=== PATIENT | male | born 1950 | race American Indian/Alaskan Native ===

== ENCOUNTER 2017-04-28 12:52 | Emergency (ER) | payer OTHER ==
--- NOTE | 2017-04-28 14:09 | XRay Report ---
BILATERAL SHOULDERS, 3 VIEWS History: Pain after fall. Findings: Moderate osteoarthritic changes are identified at both shoulders. No evidence for fracture, dislocation or ligamentous injury. The soft tissues are unremarkable. Impression: Degenerative changes.
--- NOTE | 2017-04-28 20:43 | Emergency Department Report ---
ED Upper Extremity Inj HPI - General Chief Complaint: Fall Stated Complaint: BILATERAL SHOULDER PAIN Time Seen by Provider: 04/28/17 20:33 Source: patient Mode of arrival: Ambulatory Limitations: No Limitations - History of Present Illness Initial Comments: pt is a 67 y/o aam with hx of htn, osteoarthritis who presents for complaint of bilat shoulder pain s/p fall down 2 steps last pm , patient describes pain as 5/ 10 aching and soreness exacerbated by movement pain is relieved by rest , there is no numbness no weakness no tingling no back or neck pain there was no loc pt did not seek treatment last night because " pain was not that bad last night. Complaint: Injury to:: left, right, shoulder Onset/Timin -: days(s) Other Extremity Injury: Shoulder: Left, Right Other Injuries: none Handedness: right Place: home Severity scale (0 -10): 5 Improves With: immobilization, rest Worsens With: movement of extremity Context: fall Associated Symptoms: denies: weakness, numbness, neck pain, suspects foreign body, nausea/vomiting, heard/felt popping sensat - Related Data Previous Rx's Medication Instructions Recorded Last Taken Type Acetaminophen [Acetaminophen TAB] 1,000 mg PO Q6HR PRN #60 tablet 04/28/17 Unknown Rx Cyclobenzaprine [Flexeril] 10 mg PO TID PRN #30 tablet 04/28/17 Unknown Rx Diclofenac Sodium [Voltaren] 100 gm TP TID PRN #1 tube 04/28/17 Unknown Rx Allergies Allergy/AdvReac Type Severity Reaction Status Date / Time No Known Allergies Allergy Unverified 04/28/17 13:20 ED Review of Systems ROS: Stated complaint: BILATERAL SHOULDER PAIN Other details as noted in HPI Constitutional: denies: chills, fever Eyes: denies: eye pain, eye discharge, vision change ENT: denies: ear pain, throat pain Respiratory: denies: cough, shortness of breath, wheezing Cardiovascular: denies: chest pain, palpitations Endocrine: no symptoms reported Gastrointestinal: denies: abdominal pain, nausea, diarrhea Genitourinary: denies: urgency, dysuria Musculoskeletal: arthralgia, myalgia Skin: denies: rash, lesions Neurological: denies: headache, weakness, paresthesias Psychiatric: denies: anxiety, depression Hematological/Lymphatic: denies: easy bleeding, easy bruising ED Past Medical Hx - Past Medical History Hx Hypertension: Yes Hx of Cancer: Yes Hx Arthritis: Yes - Surgical History Past Surgical History?: No - Social History Smoking Status: Current Every Day Smoker Substance Use Type: Alcohol - Medications Home Medications: Home Medications Medication Instructions Recorded Confirmed Last Taken Type Acetaminophen [Acetaminophen TAB] 1,000 mg PO Q6HR PRN #60 tablet 04/28/17 Unknown Rx Cyclobenzaprine [Flexeril] 10 mg PO TID PRN #30 tablet 04/28/17 Unknown Rx Diclofenac Sodium [Voltaren] 100 gm TP TID PRN #1 tube 04/28/17 Unknown Rx ED Physical Exam - General Limitations: No Limitations General appearance: alert, in no apparent distress - Head Head exam: Present: atraumatic, normocephalic - Eye Eye exam: Present: normal appearance - ENT ENT exam: Present: mucous membranes moist - Neck Neck exam: Present: normal inspection - Respiratory Respiratory exam: Present: normal lung sounds bilaterally. Absent: respiratory distress - Cardiovascular Cardiovascular Exam: Present: regular rate, normal rhythm. Absent: systolic murmur, diastolic murmur, rubs, gallop - GI/Abdominal GI/Abdominal exam: Present: soft, normal bowel sounds - Rectal Rectal exam: Present: deferred - Extremities Exam Extremities exam: Present: tenderness (bilat ac joint tenderness ), normal capillary refill. 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 Absent: swelling, abrasion, laceration, ecchymosis, deformity, crepidus, dislocation, erythema Upper Arm exam: Present: normal inspection, full ROM. Absent: tenderness Elbow exam: Present: normal inspection, full ROM. Absent: tenderness Forearm Wrist exam: Present: normal inspection, full ROM. Absent: tenderness Hand Wrist exam: Present: normal inspection. Absent: full ROM Neuro motor exam: Present: wrist extension intact, thumb opposition intact, thumb IP flexion intact, thumb adduction intact, fingers 2-5 abduction intact Neurosensory exam: Present: 2-point discrimination, radial nerve intact, ulnar nerve intact, median nerve intact Vascular: Present: normal capillary refill, radial pulse, brachial pulse, ulnar pulse. 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 Absent: swelling, abrasion, laceration, ecchymosis, deformity, crepidus, dislocation, erythema Upper Arm exam: Present: normal inspection, full ROM. Absent: tenderness Elbow exam: Present: normal inspection, full ROM. Absent: tenderness Forearm Wrist exam: Present: normal inspection, full ROM. Absent: tenderness Hand Wrist exam: Present: normal inspection, full ROM. Absent: tenderness Neuro motor exam: Present: wrist extension intact, thumb opposition intact, thumb IP flexion intact, thumb adduction intact, fingers 2-5 abduction intact Neurosensory exam: Present: 2-point discrimination, radial nerve intact, ulnar nerve intact, median nerve intact Vascular: Present: normal capillary refill, radial pulse, brachial pulse, ulnar pulse. Absent: vascular compromise, Pallo, pulse deficit radial art, pulse deficit ulnar art, pulse deficit brachial art - Back Exam Back exam: Present: normal inspection, full ROM. Absent: tenderness, CVA tenderness (R), CVA tenderness (L), muscle spasm, paraspinal tenderness, vertebral tenderness, rash noted - Neurological Exam Neurological exam: Present: alert, oriented X3, CN II-XII intact, normal gait, reflexes normal - Psychiatric Psychiatric exam: Present: normal affect, normal mood - Skin Skin exam: Present: warm, dry, intact, normal color. Absent: rash ED Course Vital Signs 04/28/17 13:09 Temperature 98.2 F Pulse Rate 78 Respiratory 16 Rate Blood Pressure 173/92 O2 Sat by Pulse 98 Oximetry ED Medical Decision Making - Medical Decision Making pt is a 67 y/o aam with hx of htn, osteoarthritis who presents for complaint of bilat shoulder pain s/p fall down 2 steps last pm , patient describes pain as 5/ 10 aching and soreness exacerbated by movement pain is relieved by rest , there is no numbness no weakness no tingling no back or neck pain there was no loc pt did not seek treatment last night because " pain was not that bad last night. 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 Critical care attestation.: If time is entered above; I have spent that time in minutes in the direct care of this critically ill patient, excluding procedure time. ED Disposition Clinical Impression: Acromioclavicular joint pain, bilateral Fall Qualifiers: Encounter type: initial encounter Qualified Code(s): W19.XXXA - Unspecified fall, initial encounter Left shoulder strain Qualifiers: Encounter type: initial encounter Qualified Code(s): S46.912A - Strain of unspecified muscle, fascia and tendon at shoulder and upper arm level, left arm , initial encounter Disposition: TO HOME OR SELFCARE Is pt being admited?: No Does the pt Need Aspirin: No Condition: Good Instructions: Osteoarthritis (ED), Rotator Cuff Injury (ED) Prescriptions: Acetaminophen [Acetaminophen TAB] 1,000 mg PO Q6HR PRN #60 tablet PRN Reason: Pain Cyclobenzaprine [Flexeril] 10 mg PO TID PRN #30 tablet PRN Reason: Muscle Spasm Diclofenac Sodium [Voltaren] 100 gm TP TID PRN #1 tube PRN Reason: Pain Referrals: PRIMARY CARE,MD [Primary Care Provider] - 3-5 Days Forms: Work/School Release Form(ED) Time of Disposition: 21:00
[2017-04-28 21:03] VITALS: BP 147/84
[2017-04-28] MEDS ORDERED: ULTRAM PO ONE (21:04)
== END 2017-04-28 21:17 | disposition home or self-care (01) ==
LOC: ED 12:52
DX: S46.912A Strain of unspecified muscle, fascia and tendon at shoulder and upper arm level, left arm, initial encounter (principal); M25.511 Pain in right shoulder; I10 Essential (primary) hypertension; F17.200 Nicotine dependence, unspecified, uncomplicated; W10.9XXA Fall (on) (from) unspecified stairs and steps, initial encounter; Y93.9 Activity, unspecified; Y92.9 Unspecified place or not applicable; Y99.9 Unspecified external cause status

== ENCOUNTER 2017-04-30 16:41 | Emergency (ER) | payer OTHER ==
[2017-04-30 16:50] VITALS: BP 159/92
== END 2017-04-30 21:50 | disposition left against medical advice (07) ==
LOC: ED 16:41
DX: M25.512 Pain in left shoulder (principal); Z53.21 Procedure and treatment not carried out due to patient leaving prior to being seen by health care provider

== ENCOUNTER 2018-03-27 15:37 | Emergency (ER) | payer OTHER ==
--- NOTE | 2018-03-27 16:36 | Emergency Department Report ---
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 Earlier in the day the patient start having some chills and felt shaky so he checked his blood pressure and found it to be elevated. He went to the local fire department to get a second opinion and make sure that the blood pressure check was accurate and was found to have a blood pressure of 244/86. He used to be on nifedipine secondary to elevated blood pressure but was taken off that medication since November when the patient had open-heart surgery to fix a thoracic aortic aneurysm. The patient took a nifedipine on his way in to be seen and refused EMS transfer from the fire department. He denies any chest pain, shortness of breath, headache, vision change. His primary care is through the [facility]. ED Past Medical Hx - Past Medical History Hx Hypertension: Yes Hx Arthritis: Yes - Social History Smoking Status: Never Smoker Substance Use Type: None - Medications Home Medications: Home Medications Medication Instructions Recorded Confirmed Last Taken Type Acetaminophen [Acetaminophen TAB] 1,000 mg PO Q6HR PRN #60 tablet 04/28/17 Unknown Rx Cyclobenzaprine [Flexeril] 10 mg PO TID PRN #30 tablet 04/28/17 Unknown Rx Diclofenac Sodium [Voltaren] 100 gm TP TID PRN #1 tube 04/28/17 Unknown Rx ED Review of Systems ROS: Stated complaint: HIGH BP Other details as noted in HPI Comment: All other systems reviewed and negative Constitutional: chills. denies: fever Eyes: denies: eye pain, eye discharge, vision change ENT: denies: ear pain, throat pain Respiratory: denies: cough, shortness of breath, wheezing Cardiovascular: denies: chest pain, palpitations Gastrointestinal: denies: abdominal pain, nausea, diarrhea Genitourinary: denies: urgency, dysuria Musculoskeletal: denies: back pain, joint swelling, arthralgia Skin: denies: rash, lesions Neurological: denies: headache, weakness Physical Exam - Physical Exam Vital Signs: Vital Signs 03/27/18 15:43 Temperature 99.5 F Pulse Rate 138 H Respiratory 18 Rate Blood Pressure 177/73 O2 Sat by Pulse 98 Oximetry Physical Exam: GENERAL: The patient is well-developed well-nourished. HENT: Normocephalic. Atraumatic. Patient has moist mucous membranes. EYES: Extraocular motions are intact. Pupils equal reactive to light bilaterally. NECK: Supple. Trachea is midline. CHEST/LUNGS: Clear to auscultation. There is no respiratory distress noted. HEART/CARDIOVASCULAR: Regular. There is no tachycardia. There is no murmur. ABDOMEN: Abdomen is soft, nontender. Patient has normal bowel sounds. There is no abdominal distention. SKIN: Skin is warm and dry. NEURO: The patient is awake, alert, and oriented. The patient is cooperative. The patient has no focal neurologic deficits. The patient has normal speech. Cranial nerves II through XII grossly intact. MUSCULOSKELETAL: There is no tenderness or deformity. There is no limitation range of motion. There is no evidence of acute injury. ED Course Vital Signs 03/27/18 15:43 Temperature 99.5 F Pulse Rate 138 H Respiratory 18 Rate Blood Pressure 177/73 O2 Sat by Pulse 98 Oximetry ED Medical Decision Making - Lab Data Result diagrams: 03/27/18 16:35 03/27/18 16:35 - EKG Data -: EKG Interpreted by De EKG shows normal: sinus rhythm, axis (left axis deviation), intervals, QRS complexes, ST-T waves Rate: tachycardia (115 bpm) - EKG Data When compared to previous EKG there are: previous EKG unavailable Interpretation: other (sinus tachycardia) - Medical Decision Making Patient started off this morning with some chills and feeling shaky and was found to have elevated blood pressure. He has been off of his nifedipine for the past few months per his physician. He took one of the pills on his way into the emergency department and appears to have worked as his blood pressure has slowly and steadily come down to a normal range. He had some tachycardia when he first arrived but that has also greatly improved. He no longer has any chills or feelings of shakiness. He has denied any chest pain, headache, shortness of breath or any other neurological symptoms. On examination he has normal sounding heart and lungs to auscultation. No focal, motor or sensory deficits and his cranial nerves are intact. Throat is reasons the patient appears safe for discharge home at this time but has been instructed to follow- up with his primary care physician in the next few days. He will continue with his blood pressure log and if necessary restart the nifedipine. He will return to the ER with any worsening of his symptoms or any acute distress. - Differential Diagnosis hypertensive crisis, anxiety, anemia Critical Care Time: No Critical care attestation.: If time is entered above; I have spent that time in minutes in the direct care of this critically ill patient, excluding procedure time. ED Disposition Clinical Impression: Hypertension Qualifiers: Hypertension type: essential hypertension Qualified Code(s): I10 - Essential ( primary) hypertension Disposition: DC- TO HOME OR SELFCARE Is pt being admited?: No Condition: Stable Instructions: Hypertension (ED) Additional Instructions: Follow-up with your primary care physician in the next few days. Return to the emergency Department with any worsening of your symptoms or any acute distress, especially if you develop any chest pain, shortness of breath, headache, vision changes, or any neurological deficits. Keep taking your blood pressure and keep a blood pressure log to show to your primary care physician. Stay with foods are high in salt and caffeinated products. Referrals: PRIMARY CARE, [Primary Care Provider] - [facility] Time of Disposition: 18:15
[2018-03-27 16:58] LABS: Hematocrit 35.2 % (35.5-45.6); Hemoglobin 11.3 gm/dl (11.8-15.2); Mean Corpuscular HGB Conc 32 % (32-34); Mean Corpuscular Hemoglobin 26 pg (28-32); Mean Corpuscular Volume 82 fl (84-94); Platelet Count 237 K/mm3 (140-440); Red Blood Count 4.31 M/mm3 (3.65-5.03)
[2018-03-27 17:16] LABS: BUN/Creatinine Ratio 19; Blood Urea Nitrogen 19 mg/dL (9-20); Calcium 8.5 mg/dL (8.4-10.2); Hemolysis Index 6
[2018-03-27 17:18] LABS: Red Cell Distribution Width 26.5 % (13.2-15.2)
[2018-03-27 17:56] VITALS: BP 129/59
[2018-03-27 18:46] LABS: Band Neutrophils # (Manual) 0.2 K/mm3; Basophils % (Manual) 0 % (0.0-1.8); Total Cells Counted 100
[2018-03-27 18:47] LABS: Anisocytosis 2+; Dimorphic RBC Yes; Platelet Estimate Consistent w Auto; Poikilocytosis 1+
== END 2018-03-27 18:47 | disposition home or self-care (01) ==
LOC: ED 15:37
DX: I10 Essential (primary) hypertension (principal); M19.90 Unspecified osteoarthritis, unspecified site
CPT/HCPCS: 36415; 80048; 84443; 85007; 85025; 93005; 93010; 99283

== ENCOUNTER 2018-10-04 12:48 | Day surgery (SDC) | payer OTHER ==
[~2018-10-04 12:48] MED LIST: NACL 0.9% 1000 ML 1,000 ML IV SCH
--- NOTE | 2018-10-04 13:41 | Anesthesia Day of Surgery ---
Anesthesia Day of Surgery - Day of Surgery Patient Examined: Yes Patient H&P Reviewed: Yes Patient is NPO: Yes
--- NOTE | 2018-10-04 13:43 | Anesthesia Consultation ---
Anesthesia Consult and Med Hx Date of service: 10/04/18 - Airway Anesthetic Teeth Evaluation: Good ROM Head & Neck: Adequate Mental/Hyoid Distance: Adequate Mallampati Class: Class II Intubation Access Assessment: Good - Pre-Operative Health Status ASA Pre-Surgery Classification: ASA3 Proposed Anesthetic Plan: General - Pulmonary Hx Smoking: Yes Hx Respiratory Symptoms: Yes (Hoarse after AAA surgery 11/2017. 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
[2018-10-04] MEDS ORDERED: DIPRIVAN 10 MG/ML IV ONE (14:35)
--- NOTE | 2018-10-04 15:36 | Operative Report ---
Operative Report Operative Report: Date of procedure: 10/04/2018 Procedure: Colonoscopy. Attending physician: Boyd Orozco MD Mesh Worker: Boyd Orozco MD Indication: Patient is a 68-year-old male who presents for colonoscopy for colorectal cancer screening. A colonoscopy serves to evaluate patient so that treatment may be directed based on the findings. Consent: Informed consent was obtained after advising the patient and family regarding nature of this procedure, its indications, potential benefits as well as possible complications including but not limited to bleeding perforation and adverse reaction to medication, infection as well as other cardiopulmonary complications. An informed written and verbal consent was then obtained after due opportunity was provided for questions and answers. Monitoring: Patient was monitored continuously with pulse oximetry and electrocardiographic recordings as well as blood pressure recordings. Vital signs remained stable throughout this procedure with no untoward events. Preoperative assessment: Patient was assessed immediately prior to this procedure for capacity to tolerate monitored anesthesia care and moderate sedation as well as general anesthesia. Patient's ASA classification is 2, Mallampati class is 2, Hyomental distance is 3. Instrument: [employer] video colonoscope Medications: Propofol given intravenously in divided doses. For details please refer to anesthesia records. Description of procedure: Patient was placed in the left lateral decubitus position after achieving sedation, a digital rectal examination was performed following which the colonoscope was introduced into the anal verge and advanced to the cecum which was identified by the ileocecal valve, the appendiceal orifice, as well as by the cecal strap and direct transillumination. The colonoscope was subsequently withdrawn with careful inspection of all mucosal surfaces. Patient tolerated this procedure well and was subsequently taken to the recovery room. The following findings were noted. Findings: The patient has substantial retained stool throughout the colon but in particular in the cecum and ascending colon and descending colon with some solid food matter. There were diverticular in the descending colon and sigmoid colon. On the retroflex view at the anal verge, patient had prominent internal hemorrhoids. Impression: Poor Colonoscopic preparation with retained stool Colonic diverticulosis Internal hemorrhoids . Plan: High-fiber diet. Repeat colonoscopy in 1 year, due to poor colonoscopic preparation.
--- NOTE | 2018-10-04 15:37 | Discharge Summary ---
Short Stay Discharge Plan Activity: advance as tolerated Weight Bearing Status: Weight Bear as Tolerated Diet: regular Follow up with: ELZBIETA TERRY MD [Primary Care Provider] - 7 Days
[2018-10-04 16:29] VITALS: BP 153/71
== END 2018-10-04 12:49 | disposition home or self-care (01) ==
LOC: GIO 12:48
PROVIDERS: ATTEND Internal Medicine Gastroenterology
DX: Z12.11 Encounter for screening for malignant neoplasm of colon (principal); K57.30 Diverticulosis of large intestine without perforation or abscess without bleeding; K64.8 Other hemorrhoids; E11.51 Type 2 diabetes mellitus with diabetic peripheral angiopathy without gangrene; E78.00 Pure hypercholesterolemia, unspecified; I10 Essential (primary) hypertension; M19.90 Unspecified osteoarthritis, unspecified site; F17.210 Nicotine dependence, cigarettes, uncomplicated; Z98.890 Other specified postprocedural states; Z79.899 Other long term (current) drug therapy; Z88.0 Allergy status to penicillin; Z79.82 Long term (current) use of aspirin
CPT/HCPCS: 45378; J2704; J7030